=== PATIENT | male | born 2000 | race Caucasian/White ===

== ENCOUNTER 2025-05-25 05:59 | Emergency (ER) | payer SELFPAY ==
[2025-05-25 06:04] VITALS: BP 147/89
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
[2025-05-25] MEDS: TORADOL 15 MG IM (08:30)
[2025-05-25 08:35] VITALS: BMI 23.7
[2025-05-25 08:39] VITALS: BP 132/81
[2025-05-25 09:55] VITALS: BP 132/81
== END 2025-05-25 11:15 | disposition home or self-care (01) ==
LOC: EMR 05:59
PROVIDERS: EMERGENCY PHYSICIAN Student in an Organized Health Care Education/Training Program
DX: S01.81XA Laceration without foreign body of other part of head, initial encounter (principal); S70.12XA Contusion of left thigh, initial encounter; V47.5XXA Car driver injured in collision with fixed or stationary object in traffic accident, initial encounter
CPT/HCPCS: 12013; 96372; 99284; 70450; 72192; 73552